=== PATIENT | female | born 1985 | race American Indian/Alaskan Native ===

== ENCOUNTER 2016-07-21 12:17 | Inpatient (IN) | payer OTHER ==
--- NOTE | 2016-07-21 13:12 | C.PDOC ---
History Of Present Illness The patient, a 30 y/o female, presents to the ED for evaluation of left calf pain which began last night. Patient states she experiences sharp pain that is worse with walking. She denies any injuries to the affected area as well as shortness of breath, chest pain, previous history of DVT, use of control, or social history of smoking. Time Seen by Provider: 07/21/16 12:25 Chief Complaint (Nursing): Lower Extremity Problem/Injury History Per: Patient History/Exam Limitations: no limitations Onset/Duration Of Symptoms: Hrs Current Symptoms Are (Timing): Still Present Additional History Per: Patient - Knee Description Of Injury: denies: Fell - Ankle/Foot Description Of Injury: denies: Fell Past Medical History Reviewed: Historical Data, Nursing Documentation, Vital Signs Vital Signs: Last Vital Signs Temp 98.4 F 07/21/16 12:20 Pulse 72 07/21/16 15:25 Resp 18 07/21/16 15:25 BP 120/72 07/21/16 15:25 Pulse Ox 98 07/21/16 15:25 - Medical History PMH: No Chronic Diseases Surgical History: No Surg Hx Family History: States: Unknown Family Hx - Social History Hx Tobacco Use: No Hx Alcohol Use: Yes (social) Hx Substance Use: No - Immunization History Hx Tetanus Toxoid Vaccination: No Hx Influenza Vaccination: No Hx Pneumococcal Vaccination: No Review Of Systems Except As Marked, All Systems Reviewed And Found Negative. Cardiovascular: Negative for: Chest Pain Respiratory: Negative for: Shortness of Breath Musculoskeletal: Positive for: Leg Pain (left calf ) Physical Exam - Physical Exam Appears: Non-toxic, No Acute Distress, Other (obese ) Skin: Normal Color, Warm, Dry, No Other (no erythema to LLE) Head: Atraumatic, Normacephalic Eye(s): bilateral: Normal Inspection, EOMI Oral Mucosa: Moist Neck: Normal ROM, Supple Chest: Symmetrical, No Deformity, No Tenderness Cardiovascular: Rhythm Regular, No Murmur Respiratory: Normal Breath Sounds, No Rales, No Rhonchi, No Wheezing Gastrointestinal/Abdominal: Soft, No Tenderness, No Guarding, No Rebound Back: Normal Inspection, No Vertebral Tenderness, No Paraspinal Tenderness Extremity: Normal ROM, Calf Tenderness (left calf ), Capillary Refill, No Deformity, No Swelling, No Other (negative Lj's sign) Pulses: Left Dorsalis Pedis: Normal, Right Dorsalis Pedis: Normal Neurological/Psych: Oriented x3, Normal Speech, Normal Cognition Gait: Steady ED Course And Treatment - Laboratory Results Result Diagrams: 07/21/16 13:13 07/21/16 13:13 O2 Sat by Pulse Oximetry: 97 (on RA) Pulse Ox Interpretation: Normal Medical Decision Making Medical Decision Making: Impression: 30y/o female with left calf pain Plan: * labs * Venous Duplex Scan Left Lower Extremity * reassess and disposition Progress Notes: labs and Venous Duplex Scan ordered. Scan results show abnormality and DVT of left peritoneal vein. Patient received Lovenox SC Discussed case with Dr Olmstead who accepts patient to service Patient is , was unaware and inform of results. Place consult to e merchant Disposition - Disposition Disposition: HOME/ ROUTINE Disposition Time: 13:50 Condition: STABLE - POA Present On Arrival: Deep Vein Thrombosis / PE - Clinical Impression Clinical Impression: Left leg DVT, Positive test - PA / RADIOLOGY ASSISTANT / Resident Statement MD/DO has reviewed & agrees with the documentation as recorded. - Scribe Statement The provider has reviewed the documentation as recorded by the Scribe (Annamaria Tello) All medical record entries made by the Scribe were at my direction and personally dictated by me. I have reviewed the chart and agree that the record accurately reflects my personal performance of the history, physical exam, medical decision making, and the department course for this patient. I have also personally directed, reviewed, and agree with the discharge instructions and disposition. Decision To Admit - Pt Status Changed To: Hospital Disposition Of: Inpatient - Admit Certification Admit to Inpatient:: After my assessment, the patient will require hospitalization for at least two midnights. This is because of the severity of symptoms shown, intensity of services needed, and/or the medical risk in this patient being treated as an outpatient. - InPatient: Physician Admission Certification: I certify that this patient requires 2 or more midnights of care for the following reason:: Patient with acute DVT - . Bed Request Type: Regular Patient Diagnosis: Left leg DVT, Positive test
[2016-07-21] MEDS ORDERED: Enoxaparin 80 mg Syringe SC STA (13:18)
[2016-07-21 13:20] LABS: BASO # 0.1 K/uL (0.0-0.2); EOS # 0.2 K/uL (0.0-0.7); EOS % 1.6 % (0.0-4.0); HEMATOCRIT 34.6 % (34.0-47.0); LYMPH # 3.2 K/uL (1.0-4.3); LYMPH % 29.4 % (20.0-40.0); MEAN CORPUSCULAR HEMOGLOBIN 24.8 pg (27.0-31.0); MEAN CORPUSCULAR HGB CONC 32.2 g/dL (33.0-37.0); MEAN PLATELET VOLUME 7.3 fL (7.2-11.7); MONO # 0.6 K/uL (0.0-0.8); MONO % 5.9 % (0.0-10.0); RED CELL DISTRIBUTION WIDTH 16.6 % (11.5-14.5); WHITE BLOOD COUNT 10.8 K/uL (4.8-10.8)
[2016-07-21] MEDS ORDERED: Enoxaparin 60 mg Syringe ONE (13:26)
[2016-07-21 13:27] LABS: CHLORIDE 98 mmol/L (98-107); POTASSIUM 3.5 mmol/L (3.6-5.2); SODIUM 136 mmol/L (132-148)
[2016-07-21 13:29] LABS: ALB/GLOB RATIO 1.1 (1.0-2.1); ALKALINE PHOSPHATASE 49 U/L (38-126); AST/SGOT 14 U/L (14-36); BILIRUBIN,TOTAL 0.4 mg/dL (0.2-1.3); BLOOD UREA NITROGEN 5 mg/dL (7-17); CARBON DIOXIDE 23 mmol/L (22-30); GFR AFRICAN-AMERICAN > 60; GLUCOSE,RANDOM 99 mg/dL (65-105); TOTAL PROTEIN 7.8 g/dL (6.3-8.3)
[2016-07-21 13:30] LABS: ALT/SGPT 14 U/L (9-52); CALCIUM 9.2 mg/dl (8.6-10.4)
[2016-07-21 13:35] LABS: RBC URINE 63 /hpf (0-3); URINE BILIRUBIN NEGATIVE (NEGATIVE); URINE BLOOD 2+ (NEGATIVE); URINE COLOR Yellow (YELLOW); URINE GLUCOSE (UA) NORMAL (Normal); URINE KETONE NEGATIVE (NEGATIVE); URINE LEUKOCYTE ESTERASE NEG Leu/uL (Negative); URINE PROTEIN NEGATIVE (NEGATIVE); URINE UROBILINOGEN NORMAL mg/dL (0.2-1.0); WBC URINE 2 /hpf (0-5)
[2016-07-21] MEDS ORDERED: Enoxaparin 60 mg Syringe SC SCH (22:00)
[2016-07-22 00:41] VITALS: RESP 20
[2016-07-22] MEDS: Enoxaparin 80 mg Syringe SC SCH ×2 (01:21→13:51)
[2016-07-22] MEDS: Multiple Vitamins Tab PO SCH (10:39)
--- NOTE | 2016-07-22 12:38 | US ---
Pelvic ultrasound History: . Dating. Comparison: None available. Technique: Real-time sonography was performed through the pelvis utilizing transabdominal technique. Findings: Limited study for viability purposes only. Dedicated anatomic survey at an interval date is recommended. Uterus: 12.8 x 6.8 x 7.7 centimeters. Anteverted. Cervix measures 3.2 centimeters. Intrauterine gestational sac measuring 4.9 centimeters corresponding to a gestational age of approximately 10 weeks and 4 days [place]-rump length measures 2.9 centimeters corresponding to a gestational age of 9 weeks and 5 days. heart rate of 168 beats per minute. No free fluid in the pelvic cul-de-sac. Right ovary: 2.8 x 1.1 x 2.3 centimeters. Normal flow. Left ovary: 3.1 x 1.6 x 2.2 centimeters. Normal flow. Impression: Intrauterine corresponding to a gestational age of approximately 9 weeks and 5 days by crown-rump length measurement of 2.9 centimeters. heart rate of 168 beats per minute. Limited 1st trimester ultrasound for viability purposes only. Continued interval followup with serial ultrasound, serial HCG levels, and gynecological consultation would be helpful if clinically indicated.
--- NOTE | 2016-07-22 14:43 | CP.PCM.CON ---
History of Present Illness - History of Present Illness History of Present Illness: 30 yr lmp 06/16/16 came to ER c/o left calf pain from saturday got worse on saturday thats why pateint cme. pt states no pain or vb .pt did not knew that she is and undecided bout preg . termination ???.pt was diagnosed with DVT and started on lovenox. obx 3 x pmh obese, DVT Current hospitalistion med pnv all nkda psh denies soch denies sono 9.5weeks,fhr 168 beats Past Patient History - Infectious Disease Hx of Infectious Diseases: None - Past Medical History & Family History Past Medical History?: No - Past Social History Smoking Status: Former Smoker - MUSCULOSKELETAL/RHEUMATOLOGICAL Hx Falls: No - PSYCHIATRIC Hx Substance Use: No - SURGICAL HISTORY Hx Surgeries: No - ANESTHESIA Hx Anesthesia: Yes Hx Anesthesia Reactions: No Has any member of the family had a problem w/ anesthesia?: No Meds Allergies/Adverse Reactions: Allergies Allergy/AdvReac Type Severity Reaction Status Date / Time No Known Allergies Allergy Verified 04/12/16 20:39 - Medications Medications: Current Medications Enoxaparin Sodium (Lovenox) 65 mg SC Q12H [facility] Last Admin: 07/22/16 13:51 Dose: 65 mg Folic Acid (Folic Acid) 1 mg PO DAILY [facility] Last Admin: 07/22/16 10:39 Dose: 1 mg Multivitamins (Hexavitamin) 1 tab PO DAILY [facility] Last Admin: 07/22/16 10:39 Dose: 1 tab Pneumococcal Polyvalent Vaccine (Pneumovax 23 Vaccine) 0.5 ml IM .ONCE ONE Stop: 07/23/16 10:01 Results - Vital Signs Recent Vital Signs: Last Vital Signs Temp 98.2 F 07/22/16 08:00 Pulse 73 07/22/16 08:00 Resp 20 07/22/16 08:00 BP 99/66 L 07/22/16 08:00 Pulse Ox 99 07/22/16 08:00 - Labs Result Diagrams: 07/21/16 13:13 07/21/16 13:13 Assessment & Plan - Assessment and Plan (Free Text) Assessment: 30 yr at 9.5weeks with DVT Plan: PLAN No ob ISSUES. DESIRED PREG ??/ Cont Medical management for DVT.. Upon discharge follow up with Dr Bhandari clinic. - Date & Time Date: 07/22/16 Time: 14:00
[2016-07-23 00:14] VITALS: O2SAT 98
[2016-07-23] MEDS: Enoxaparin 80 mg Syringe SC SCH (01:18)
[2016-07-23] MEDS ORDERED: Pneumococcal 23-Valent Vaccine IM ONE (10:00)
--- NOTE | 2016-07-23 10:21 | CP.PCM.PN ---
Subjective - Date & Time of Evaluation Date of Evaluation: 07/23/16 Time of Evaluation: 09:00 - Subjective Subjective: Medicine Progress Note- Dr. Olmstead's Service: Patient seen and examined at bedside this AM. Patient is feeling well and ambulating. Left calf pain has improved. She denies chest pain, SOB, fevers, chills, nausea, vomiting. She has been tolerating medications without reported issues. Seen during rounds with attending. Discharge planning today as per Dr. Olmstead. Objective - Vital Signs/Intake and Output Vital Signs (last 24 hours): Temp Pulse Resp BP Pulse Ox 98.7 F 69 20 104/63 98 07/23/16 00:11 07/23/16 00:11 07/23/16 00:11 07/23/16 00:11 07/23/16 00:11 Intake and Output: 07/23/16 07/23/16 06:59 18:59 Intake Total 600 Balance 600 - Medications Medications: Current Medications Enoxaparin Sodium (Lovenox) 65 mg SC Q12H [facility] Last Admin: 07/23/16 01:18 Dose: 65 mg Folic Acid (Folic Acid) 1 mg PO DAILY [facility] Last Admin: 07/22/16 10:39 Dose: 1 mg Multivitamins (Hexavitamin) 1 tab PO DAILY [facility] Last Admin: 07/22/16 10:39 Dose: 1 tab - Labs Labs: PT 11.2 SECONDS (9.7-12.2) 07/21/16 13:13 INR 1.0 07/21/16 13:13 APTT 30 SECONDS (21-34) 07/21/16 13:13 - Constitutional Appears: No Acute Distress - Head Exam Head Exam: NORMAL INSPECTION, NORMOCEPHALIC - Eye Exam Eye Exam: EOMI, Normal appearance - ENT Exam ENT Exam: Mucous Membranes Moist - Respiratory Exam Respiratory Exam: Clear to Ausculation Bilateral, NORMAL BREATHING PATTERN - Cardiovascular Exam Cardiovascular Exam: REGULAR RHYTHM, +S1, +S2 - GI/Abdominal Exam GI & Abdominal Exam: Soft. absent: Distended, Tenderness - Extremities Exam Extremities Exam: Normal Inspection, Tenderness (left calf). absent: Pedal Edema - Back Exam Back Exam: NORMAL INSPECTION - Neurological Exam Neurological Exam: Alert - Psychiatric Exam Psychiatric exam: Normal Affect, Normal Mood - Skin Skin Exam: Dry, Normal Color, Warm Assessment and Plan (1) Left leg DVT Assessment & Plan: Discharge patient on Lovenox 180 mg SC (1.5 X 120 kg) daily. Patient to follow up with Dr. Olmstead in his office. 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 Status: Acute (2) and not yet delivered in first trimester Assessment & Plan: 30 yr at 9.5weeks with DVT. As per SWIM COACH team, there are no OB issues and patient may continue with DVT therapy. vitamins instructed on discharge. 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 Status: Acute - Assessment and Plan (Free Text) Assessment: Discharge planning as per Dr. Olmstead.
[2016-07-23] MEDS: Multiple Vitamins Tab PO SCH (10:35)
--- NOTE | 2016-07-23 11:43 | VASCLAB ---
PROCEDURE: Left Lower Extremity Venous Duplex Exam. HISTORY: pain to left calf since yesterday PRIORS: None. TECHNIQUE: Left common femoral, femoral, popliteal and posterior tibial, peroneal and great saphenous veins were evaluated. Flow was assessed with color Doppler, compressibility, assessment of phasic flow and augmentation response. Report prepared by SHIRIN Salmon, RVT FINDINGS: LEFT: 1. Common Femoral Vein: 1.1. Compressibility - Fully compressible: Thrombus - None : Flow - Phasic: Augmentation -Normal: Reflux - None. 2. Femoral Vein: 2.1. Compressibility - Fully compressible: Thrombus - None: Flow - Phasic: Augmentation -Normal: Reflux - None. 3. Popliteal Vein: 3.1. Compressibility - Fully compressible: Thrombus - None: Flow - Phasic: Augmentation -Normal: Reflux - None. 4. Posterior Tibial Vein: 4.1. Compressibility - Fully compressible: Thrombus - None: Flow - Phasic: Augmentation -Normal: Reflux - None. 5. Peroneal Vein: 5.1. Compressibility - Incompressible: Thrombus - Acute: Flow - Absent : Augmentation -None: Reflux - None. 6. Great Saphenous Vein: 6.1. Compressibility - Fully compressible: Thrombus - None: Flow - Phasic: Augmentation - Normal: Reflux - None. OTHER FINDINGS: Note: No evidence of deep venous thrombosis of the right lower extremity. IMPRESSION: There is acute Deep Venous Thrombosis of the left peroneal vein. S/W Irina ARENAS above finding were provided at 1pm on 07/21/2016.
[2016-07-23 15:20] VITALS: BP 99/58; PULSE 73; TEMP 98.4
--- NOTE | 2016-09-03 08:18 | HP ---
The patient with chief complaint of ____ weakness, fatigue, tiredness. The patient came to the ER, a dvised admission. PHYSICAL EXAMINATION: GENERAL: Awake, alert, oriented. VITAL SIGNS: Temperature 98, pulse 95, blood pressure 110/70. HEENT: Within normal limits. NECK: Supple. CHEST: Symmetrical. HEART: Regular. ABDOMEN: Soft. EXTREMITIES: No edema. The patient will get bedrest, supportive care, IV fluids. Dell Shay MD cc: [id number] TT: 09/01/2016 08:30:24 jn
== END 2016-07-23 14:11 | disposition home or self-care (01) | DRG 886 ==
LOC: C.ER 12:17 → C.9E 13:51 → C.3T 15:44 → C.9E 16:00 → C.3T 21:18
PROVIDERS: ADMIT Internal Medicine Pulmonary Disease; ATTEND Internal Medicine Pulmonary Disease
DX: O22.31 Deep phlebothrombosis in pregnancy, first trimester (principal); Z68.41 Body mass index [BMI] 40.0-44.9, adult; I82.4Z2 Acute embolism and thrombosis of unspecified deep veins of left distal lower extremity; Z3A.01 Less than 8 weeks gestation of pregnancy; Z87.891 Personal history of nicotine dependence

== ENCOUNTER 2016-08-18 01:28 | Emergency (ER) | payer OTHER ==
[2016-08-18 01:50] VITALS: RESP 20; TEMP 98.4
[2016-08-18] MEDS ORDERED: Oxycodone/Acetaminophen 5/325 mg Tab PO STA (02:13)
--- NOTE | 2016-08-18 02:15 | C.PDOC ---
History Of Present Illness 30 yo female w/recent hx of DVT of LE and , come in for evaluation of left sided lower toothache gradually developed since yesterday. Pt reports, pain is localized, worse with pressure. Denies fever, chills, recent dental work , denies facial swelling, drooling, sore throat, dysphagia, dyspnea, CP, SOB, wheezing. Records from previous ED visits review, last one was on 07/21/16 when pt was diagnosed with DVT of LE , 10wks. Pt sts, reports takes Pradaxa and had D&C done few weeks ago " Im not any more". Pt was advised on narcotic use in pregnany, pt request strong medication, took Tylenol at home without improvement. Time Seen by Provider: 08/18/16 01:49 Chief Complaint (Nursing): Dental Pain History Per: Patient Onset/Duration Of Symptoms: Gradual Current Symptoms Are (Timing): Still Present Past Medical History Reviewed: Historical Data, Nursing Documentation, Vital Signs Vital Signs: Last Vital Signs Temp 98.4 F 08/18/16 01:49 Pulse 71 08/18/16 01:49 Resp 20 08/18/16 01:49 BP 119/76 08/18/16 01:49 Pulse Ox 97 08/18/16 01:49 - Medical History PMH: Deep Vein Thrombosis Other PMH: Obesity Family History: States: No Known Family Hx - Social History Hx Tobacco Use: No Hx Alcohol Use: No Hx Substance Use: No - Immunization History Hx Tetanus Toxoid Vaccination: No Hx Influenza Vaccination: No Hx Pneumococcal Vaccination: No Review Of Systems Except As Marked, All Systems Reviewed And Found Negative. Constitutional: Negative for: Fever, Chills ENT: Positive for: Mouth Pain. Negative for: Ear Discharge, Nose Discharge, Nose Congestion, Mouth Swelling, Throat Pain, Throat Swelling Cardiovascular: Negative for: Chest Pain, Palpitations, Edema, Light Headedness Respiratory: Negative for: Cough, Shortness of Breath, Wheezing Musculoskeletal: Negative for: Neck Pain Skin: Negative for: Rash Neurological: Negative for: Weakness, Numbness, Headache, Dizziness Physical Exam - Physical Exam Appears: Well, Non-toxic, No Acute Distress Skin: Normal Color, Warm, No Rash Eye(s): bilateral: PERRL Ear(s): Bilateral: Normal Nose: No Flaring, No Discharge Oral Mucosa: Moist, No Drooling, No Trismus Tongue: Normal Appearing Lips: Normal Appearing Teeth: Tender To Palpation (left lower 1st-2nd premolar, no gingival edema or erythema, no flactulance.) Gingiva: No Erythema, No Swelling, No Tender, No Abscess Throat: Normal, No Erythema, No Exudate, No Drooling, Other (uvula midline, no edema.) Neck: Normal ROM, Supple Extremity: Normal ROM Neurological/Psych: Oriented x3, Normal Speech ED Course And Treatment O2 Sat by Pulse Oximetry: 97 Pulse Ox Interpretation: Normal Progress Note: On re-evaluation fever improved, pt is afebrile, Hemodynamicaly stable. Tolerate Po well in ED. Non-toxic. PusleOx 100% RA. ENT: (+)exam c/w dental pain, no evidence of tooth abscess or facial cellulitis. No drooling or trismus. Neck: (-) meningeal sign. Lungs: CTA B/L, BS equal B/L. Pt denies known allergy to any medication including PCN. Pt advised. ref. to f/u with Dentist in 2-3 days for re-eavl. return if any new changes. Disposition Counseled Patient/Family Regarding: Diagnosis, Need For Followup, Rx Given - Disposition Referrals: [facility] [Provider Group] [facility] [Provider Group] Disposition Time: 02:13 Condition: STABLE Prescriptions: Penicillin VK [Pen-Vee K] 2 tab PO BID #28 tab traMADol [Ultram] 50 mg PO TID #7 tab Instructions: Toothache (ED) - Clinical Impression Clinical Impression: Tooth ache
[2016-08-18] MEDS ORDERED: Oxycodone/Acetaminophen 5/325 mg Tab ONE (02:32)
[2016-08-18 02:55] VITALS: BP 121/78; PULSE 78; O2SAT 99
== END 2016-08-18 02:52 | disposition home or self-care (01) ==
LOC: C.ER 01:28
DX: K08.89 Other specified disorders of teeth and supporting structures (principal)

== ENCOUNTER 2018-04-13 17:18 | Emergency (ER) | payer OTHER ==
[2018-04-13 17:18] VITALS: BMI 43.2
[2018-04-13 17:29] VITALS: BP 96/64; PULSE 75; RESP 18; TEMP 98.6; O2SAT 100
--- NOTE | 2018-04-13 17:52 | C.PDOC ---
History Of Present Illness Patient reports one day history of right calf pain. No injury noted. Denies any other symptoms such as chest pain or dyspnea. She has a history of DVT a year and a half ago, took anticoagulants for 4 months but has not been on any since then. Time Seen by Provider: 04/13/18 17:33 Chief Complaint (Nursing): Lower Extremity Problem/Injury Past Medical History Reviewed: Historical Data, Nursing Documentation, Vital Signs Vital Signs: Last Vital Signs Temp 98.6 F 04/13/18 17:26 Pulse 75 04/13/18 17:26 Resp 18 04/13/18 17:26 BP 96/64 L 04/13/18 17:26 Pulse Ox 100 04/13/18 17:26 - Medical History PMH: Deep Vein Thrombosis (L Leg) Family History: States: Unknown Family Hx - Social History Hx Tobacco Use: No Hx Alcohol Use: No Hx Substance Use: No - Immunization History Hx Tetanus Toxoid Vaccination: No Hx Influenza Vaccination: No Hx Pneumococcal Vaccination: No Review Of Systems Except As Marked, All Systems Reviewed And Found Negative. Constitutional: Negative for: Fever Cardiovascular: Negative for: Chest Pain Respiratory: Negative for: Shortness of Breath, Hemoptysis, SOB with Excertion, Pleuritic Pain Gastrointestinal: Negative for: Nausea, Vomiting Musculoskeletal: Positive for: Leg Pain Skin: Negative for: Rash, Bruising Neurological: Negative for: Weakness, Numbness Physical Exam - Physical Exam Appears: Well, Non-toxic, No Acute Distress Skin: Normal Color, Warm, Dry, No Rash, No Ecchymosis Oral Mucosa: Moist Chest: Symmetrical Cardiovascular: Rhythm Regular Respiratory: Normal Breath Sounds Gastrointestinal/Abdominal: Normal Exam Extremity: Normal ROM, No Pedal Edema, Calf Tenderness (on R leg), No Deformity, No Swelling Neurological/Psych: Oriented x3, Normal Motor, Normal Sensation Gait: Steady ED Course And Treatment O2 Sat by Pulse Oximetry: 100 Medical Decision Making Medical Decision Making: Contacted manufacturing test technician, not in house today, will be in from 7am-4pm tomorrow. Explained this to the patient and advised her to return tomorrow, she verbalizes understanding. Disposition - Disposition Disposition: HOME/ ROUTINE Disposition Time: 18:10 Condition: GOOD Additional Instructions: VANNA CROOKS, thank you for letting us take care of you today. Your provider was Ana Diaz MD and you were treated for RT CALF PAIN. The emergency medical care you received today was directed at your acute symptoms. If you were prescribed any medication, please fill it and take as directed. It may take several days for your symptoms to resolve. Return to the Emergency Department if your symptoms worsen, do not improve, or if you have any other problems. Please contact your doctor or call one of the physicians/clinics you have been referred to that are listed on the Patient Visit Information form that is included in your discharge packet. Bring any paperwork you were given at discharge with you along with any medications you are taking to your follow up visit. Our treatment cannot replace ongoing medical care by a primary care provider outside of the emergency department. Thank you for allowing the [email or web address] team to be part of your care today. If you had an X-Ray or CT scan: A Radiologist will review the ED reading if any change in treatment is needed we will contact you. If you had a blood, urine, or wound culture: It will take several days for the results, if any change in treatment is needed we will contact you. If you had an STI test: It will take 48 hours for the results. Please call after 1 week if you have not heard back. Please return tomorrow between the hours of 7am and 4pm for DVT study. Instructions: Venous Duplex Ultrasound Forms: [employer] (Azerbaijani) - Clinical Impression Clinical Impression: Tenderness of right calf
== END 2018-04-13 18:09 | disposition home or self-care (01) ==
LOC: C.ER 17:18
DX: M79.604 Pain in right leg (principal)

== ENCOUNTER 2018-04-14 08:07 | Emergency (ER) | payer OTHER ==
[2018-04-14 08:07] VITALS: BMI 43.2
--- NOTE | 2018-04-14 10:16 | C.PDOC ---
History Of Present Illness 32 year old female presents to the ED for evaluation of right calf pain which began two days ago. Patient was evaluated in the ED for calf pain yesterday, and was told that registered nurse cardiovascular icu was not in house, and advised to return today. Patient has history of DVT 1.5 years ago, and states she took anticoagulants for 4 months. Patient denies chest pain and dyspnea. Time Seen by Provider: 04/14/18 08:19 Chief Complaint (Nursing): Lower Extremity Problem/Injury History Per: Patient History/Exam Limitations: no limitations Onset/Duration Of Symptoms: Days (2) Current Symptoms Are (Timing): Still Present Additional History Per: Patient Past Medical History Reviewed: Historical Data, Nursing Documentation, Vital Signs Vital Signs: Last Vital Signs Temp 97.8 F 04/14/18 08:11 Pulse 75 04/14/18 08:11 Resp 20 04/14/18 08:11 BP 107/74 04/14/18 08:11 Pulse Ox 99 04/14/18 08:11 - Medical History PMH: Deep Vein Thrombosis (L Leg) Surgical History: No Surg Hx Family History: States: Unknown Family Hx - Social History Hx Tobacco Use: No Hx Alcohol Use: No Hx Substance Use: No - Immunization History Hx Tetanus Toxoid Vaccination: No Hx Influenza Vaccination: No Hx Pneumococcal Vaccination: No Review Of Systems Cardiovascular: Negative for: Chest Pain Respiratory: Negative for: Other (dyspnea ) Musculoskeletal: Positive for: Other (right calf pain ) Physical Exam - Physical Exam Appears: Non-toxic, No Acute Distress Skin: Normal Color, Warm, Dry Head: Atraumatic, Normacephalic Eye(s): bilateral: Normal Inspection Oral Mucosa: Moist Neck: Supple Chest: Symmetrical, No Deformity, No Tenderness Cardiovascular: Rhythm Regular, No Murmur Respiratory: Normal Breath Sounds, No Rales, No Rhonchi, No Wheezing Extremity: Normal ROM, No Pedal Edema, Calf Tenderness (right), Capillary Refill (less than 2 seconds ), No Deformity, No Swelling Neurological/Psych: Oriented x3, Normal Speech, Normal Cognition ED Course And Treatment O2 Sat by Pulse Oximetry: 99 (on RA) Pulse Ox Interpretation: Normal Medical Decision Making Medical Decision Making: Impression: 32 year old female with right calf pain Plan: * Venous Duplex Scan * reassess and disposition Progress: Venous Duplex scan right lower extremity ordered and reviewed. 1030 am Patient returns from venous doppler which was negative for any DVT or abnormal findings I went to inform the patient of results, but she was already aware and left the ED Disposition Counseled Patient/Family Regarding: Diagnosis, Need For Followup - Disposition Referrals: Hernan Olmstead MD [Medical Doctor] - Disposition: HOME/ ROUTINE Disposition Time: 10:45 Condition: STABLE Additional Instructions: Your venous doppler was negative Take medicine for pain Instructions: Muscle and Bone Pain (DC) Forms: [employer] (Vietnamese) - POA Present On Arrival: None - Clinical Impression Clinical Impression: Right calf pain - PA / FOREIGN LANGUAGE PROFESSOR / Resident Statement MD/DO has reviewed & agrees with the documentation as recorded. - Scribe Statement The provider has reviewed the documentation as recorded by the Scribe (Annamaria Tello) All medical record entries made by the Scribe were at my direction and personally dictated by me. I have reviewed the chart and agree that the record accurately reflects my personal performance of the history, physical exam, medical decision making, and the department course for this patient. I have also personally directed, reviewed, and agree with the discharge instructions and disposition.
[2018-04-14 10:49] VITALS: BP 110/88; PULSE 78; RESP 18; TEMP 97.9
[2018-04-14 10:50] VITALS: O2SAT 99
--- NOTE | 2018-04-14 12:59 | VASCLAB ---
Date of service: 04/14/2018 PROCEDURE: Right Lower Extremity Venous Duplex Exam. HISTORY: pain right calf, hx of DVT PRIORS: None. TECHNIQUE: Right common femoral, femoral, popliteal and posterior tibial, peroneal and great saphenous veins were evaluated. Flow was assessed with color Doppler, compressibility, assessment of phasic flow and augmentation response. Report prepared by Harshad Ny, T FINDINGS: RIGHT: 1. Common Femoral Vein: 1.1. Compressibility - Fully compressible: Thrombus - None: Flow - Phasic: Augmentation -Normal: Reflux - . 2. Femoral Vein: 2.1. Compressibility - Fully compressible: Thrombus - None: Flow - Phasic: Augmentation -Normal: Reflux - . 3. Popliteal Vein: 3.1. Compressibility - Fully compressible: Thrombus - None: Flow - Phasic: Augmentation -Normal: Reflux - . 4. Posterior Tibial Vein: 4.1. Compressibility - Fully compressible: Thrombus - None: Flow - Phasic: Augmentation -Normal: Reflux - . 5. Peroneal Vein: 5.1. Compressibility - Fully compressible: Thrombus - None: Flow - Phasic: Augmentation -Normal: Reflux - . 6. Great Saphenous Vein: 6.1. Compressibility - Fully compressible: Thrombus -None: Flow - Phasic: Augmentation - Normal: Reflux - . OTHER FINDINGS: IMPRESSION: No evidence of deep or superficial vein thrombosis of the right lower extremity with excellent venous flow. Normal venous flow noted in the left common femoral vein.
== END 2018-04-14 10:49 | disposition home or self-care (01) ==
LOC: C.ER 08:07
DX: M79.661 Pain in right lower leg (principal)